=== PATIENT | male | born 1970 | race African-American/Black ===

== ENCOUNTER 2021-11-12 13:24 | Emergency (ER) | payer MEDICAID ==
[~2021-11-12] VITALS: Ht 165.1 cm; Wt 75.0 kg
[2021-11-12] MEDS ORDERED: LISINOPRIL 10MG TABLET PO ONE (15:30)
[2021-11-12 16:22] LABS: CHLORIDE 107 mEq/L (98-107)
[2021-11-12] MEDS ORDERED: ONDANSETRON 4MG ODT PO ONE (17:30)
[2021-11-12] MEDS ORDERED: HYDROCODONE/ACETAMINOPHEN 5/325MG TABLET PO ONE (17:30)
[2021-11-12] MEDS ORDERED: LISI10TA26 MT (18:17)
[2021-11-12] MEDS ORDERED: HYDR-4001 MT (18:17)
[2021-11-12 18:32] VITALS: BP 188/99
== END 2021-11-12 18:35 | disposition home or self-care (01) ==
LOC: ER 13:24
DX: S82.145A Nondisplaced bicondylar fracture of left tibia, initial encounter for closed fracture (principal); I10 Essential (primary) hypertension; Y93.67 Activity, basketball; Y92.310 Basketball court as the place of occurrence of the external cause
CPT/HCPCS: 36415; 73562; 80048; 93005; 93971; 99285; L1830; Q0162